=== PATIENT | female | born 1980 | race Caucasian/White ===

== ENCOUNTER 2017-03-01 11:49 | Emergency (ER) | payer OTHER ==
[2017-03-01 12:10] LABS: Urine Bilirubin Negative (NEGATIVE); Urine Blood 50 /ul (NEGATIVE); Urine Ketone 5 mg/dL (NEGATIVE); Urine Protein 30 mg/dL (NEGATIVE); Urine Specific Gravity >=1.030 SP.GR. (1.005-1.010); Urine Urobilinogen Normal (NORMAL)
[2017-03-01 12:11] LABS: Urine Appearance Slightly Cloudy; Urine Bacteria 3+; Urine Color Yellow; Urine Nitrite Positive (NEGATIVE); Urine RBC 0-5 /hpf (0-5); Urine WBC 25-50 /hpf (0-5)
[2017-03-01] MEDS ORDERED: KETOROLAC TROMETHAMINE 30 MG/ML VIAL IV ONE (12:11)
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
[2017-03-01] MEDS ORDERED: KETOROLAC TROMETHAMINE 30 MG/ML VIAL ONE (12:20)
[2017-03-01 12:26] LABS: Hematocrit 35.4 % (37.0-47.0); Hemoglobin 12.4 gm/dL (12.5-16.0); Mean Cell Volume 85.5 fl (78-100); Mean Platelet Volume 9.6 fl (6.0-9.5); Neutrophil # 12.5 K/mm3 (1.3-6.0); Platelet Count 155 K/mm3 (150-450); Red Blood Count 4.14 M/mm3 (4.2-5.4); Red Cell Distribution Width 11.6 % (11.5-14.0); White Blood Count 14.2 K/mm3 (4.0-10.5)
[2017-03-01 12:44] LABS: Albumin * 3.9 gm/dl (3.4-5.0); Anion Gap 17.3 mmol/L (6.8-13.8); BUN/Creatinine Ratio 9.8 (9.0-21.6); Bilirubin, Total 0.5 mg/dL (0.0-1.1); CRP 17.8 mg/dL (0.0-0.9); Ca. Corrected For Albumin 8.4 mg/dL (8.4-10.2); Calcium * 8.6 mg/dL (7.9-10.9); Carbon Dioxide 23.5 mmol/L (24-32.6); Potassium 2.8 mmol/L (3.4-4.6); Total Protein 7.3 gm/dL (6.2-8.2)
[2017-03-01] MEDS ORDERED: PROMETHAZINE HCL 25 MG in DEXTROSE 5 % IN WATER 50 ML IV ONE ×2 (12:53)
[2017-03-01] MEDS ORDERED: MORPHINE SULFATE 2 MG/ML DISP.SYRIN IV ONE (12:53)
[2017-03-01] MEDS ORDERED: POTASSIUM CHLORIDE 20 MEQ TABLET.SA PO ONE (12:54)
[2017-03-01] MEDS ORDERED: POTASSIUM CHLORIDE 20 MEQ TABLET.SA ONE (12:56)
[2017-03-01] MEDS ORDERED: MORPHINE SULFATE 2 MG/ML DISP.SYRIN ONE (12:56)
[2017-03-01 13:08] VITALS: BP 117/70
== END 2017-03-01 14:10 | disposition home or self-care (01) ==
LOC: ER 11:49
DX: N12 Tubulo-interstitial nephritis, not specified as acute or chronic (principal); E87.6 Hypokalemia; Z87.440 Personal history of urinary (tract) infections

== ENCOUNTER 2017-03-03 16:19 | Inpatient (IN) | payer OTHER ==
[2017-03-03] MEDS ORDERED: diphenhydrAMINE HCL 50 MG/ML VIAL IV ONE (17:13)
[2017-03-03] MEDS ORDERED: METOCLOPRAMIDE HCL 5 MG/ML VIAL IV ONE (17:13)
[2017-03-03] MEDS ORDERED: NORMAL SALINE 1,000 ML IV ONE ×2 (17:13→19:30)
[2017-03-03] MEDS ORDERED: diphenhydrAMINE HCL 50 MG/ML VIAL ONE (17:20)
[2017-03-03] MEDS ORDERED: DIATRIZOATE MEGLUMINE, SODIUM 30 ML BTL ONE (17:20)
[2017-03-03] MEDS ORDERED: METOCLOPRAMIDE HCL 5 MG/ML VIAL ONE (17:20)
[2017-03-03] MEDS ORDERED: DIATRIZOATE MEGLUMINE, SODIUM 30 ML BTL PO ONE (17:21)
[2017-03-03 17:29] LABS: Hematocrit 30.6 % (37.0-47.0); Hemoglobin 10.3 gm/dL (12.5-16.0); Mean Cell Volume 87.2 fl (78-100); Mean Corpuscular Hemoglobin 29.3 pg (27-31); Mean Corpuscular Hgb Conc 33.7 g/dl (32-36); Mean Platelet Volume 9.6 fl (6.0-9.5); Platelet Count 159 K/mm3 (150-450); Red Blood Count 3.51 M/mm3 (4.2-5.4); Red Cell Distribution Width 12.1 % (11.5-14.0); White Blood Count 11.3 K/mm3 (4.0-10.5)
[2017-03-03 17:31] LABS: Total Cells Counted 100
[2017-03-03 17:36] LABS: BUN/Creatinine Ratio 14.1 (9.0-21.6); Calcium * 8.8 mg/dL (7.9-10.9); Carbon Dioxide 25.4 mmol/L (24-32.6); Estimated Creat Clear 45.3; Potassium 3.4 mmol/L (3.4-4.6)
[2017-03-03] MEDS ORDERED: HYDROmorphone HCL 1 MG/ML DISP.SYRIN IV ONE (18:11)
[2017-03-03] MEDS ORDERED: HYDROmorphone HCL 1 MG/ML DISP.SYRIN ONE (18:11)
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
[2017-03-03 18:58] LABS: Urine Bilirubin Negative (NEGATIVE); Urine Blood Negative /ul (NEGATIVE); Urine Ketone Negative (NEGATIVE); Urine Nitrite Negative (NEGATIVE); Urine Protein 30 mg/dL (NEGATIVE); Urine Urobilinogen Normal (NORMAL); Urine pH 5.5 pH (5.0-7.0)
[2017-03-03 19:01] LABS: Atypical (Reactive) Lymph 6 % (0-2); Band 3 % (0-2.0); Eosinophil 1 % (0-3); Lymphocyte 6 % (20-51); Monocyte 2 % (0-9); Neutrophil 82 % (42-75); Neutrophil # 9.3 K/mm3 (1.3-6.0); Platelet Estimate Normal (NORMAL)
[2017-03-03 19:02] LABS: RBC Morphology Normal (NORMAL)
[2017-03-03 19:05] LABS: Urine Appearance Slightly Cloudy; Urine Bacteria 1+; Urine Color Yellow; Urine RBC None Seen /hpf (0-5); Urine WBC 0-5 /hpf (0-5)
[2017-03-03] MEDS ORDERED: MORPHINE SULFATE 2 MG/ML DISP.SYRIN IV ONE ×2 (20:30→21:39)
[2017-03-03] MEDS ORDERED: MORPHINE SULFATE 2 MG/ML DISP.SYRIN ONE ×2 (20:30→21:33)
[2017-03-03 20:51] LABS: Albumin * 2.4 gm/dl (3.4-5.0); BUN/Creatinine Ratio 11.6 (9.0-21.6); Bilirubin Direct 0.1 mg/dL (0.0-0.3); Bilirubin, Total 0.2 mg/dL (0.0-1.1); Bilirubin,Indirect 0.1 mg/dL (0.1-0.7); Total Protein 5.9 gm/dL (6.2-8.2)
[2017-03-03] MEDS ORDERED: KETOROLAC TROMETHAMINE 30 MG/ML VIAL ONE (21:37)
[2017-03-03] MEDS ORDERED: KETOROLAC TROMETHAMINE 30 MG/ML VIAL IV ONE (21:39)
[2017-03-03] MEDS ORDERED: SENNOSIDES 8.6 MG TABLET PO SCH (23:45)
[2017-03-03] MEDS ORDERED: BISACODYL 5 MG TABLET.DR PO SCH (23:45)
[2017-03-03] MEDS ORDERED: ONDANSETRON HCL/PF 2 MG/ML VIAL IV PRN (23:46)
[2017-03-04] MEDS ORDERED: MAGNESIUM CITRATE 300 ML BTL ONE (00:12)
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
[2017-03-04] MEDS: HYDROmorphone HCL 1 MG/ML DISP.SYRIN IV PRN ×10 (00:25→21:40)
[2017-03-04] MEDS: MAGNESIUM CITRATE 300 ML BTL PO ONE ×2 (00:26→23:35)
[2017-03-04] MEDS: NORMAL SALINE 1,000 ML IV PRN ×3 (00:26→21:40)
[2017-03-04] MEDS ORDERED: metroNIDAZOLE/SODIUM CHLORIDE 500 MG/100 ML BAG IV SCH (01:30)
[2017-03-04] MEDS: METOCLOPRAMIDE HCL 5 MG/ML VIAL IV PRN ×2 (01:57→18:49)
[2017-03-04] MEDS ORDERED: IBUPROFEN 200 MG TABLET PO PRN (02:02)
[2017-03-04] MEDS ORDERED: oxyCODONE HCL/ACETAMINOPHEN 1 TAB TABLET PO PRN (02:02)
[2017-03-04] MEDS: PIPERACILLIN SODIUM/TAZOBACTAM 3.375 GM in DEXTROSE 5 % IN WATER 100 ML IV SCH ×4 (03:03→09:46)
[2017-03-04 06:14] LABS: Hematocrit 28.8 % (37.0-47.0); Hemoglobin 9.4 gm/dL (12.5-16.0); Mean Cell Volume 88.6 fl (78-100); Mean Corpuscular Hemoglobin 28.9 pg (27-31); Mean Corpuscular Hgb Conc 32.6 g/dl (32-36); Mean Platelet Volume 9.6 fl (6.0-9.5); Neutrophil # 5.4 K/mm3 (1.3-6.0); Neutrophil % 77.3 % (42-75.0); Platelet Count 157 K/mm3 (150-450); Red Blood Count 3.25 M/mm3 (4.2-5.4); Red Cell Distribution Width 12.2 % (11.5-14.0)
[2017-03-04 06:25] LABS: Anion Gap 13.7 mmol/L (6.8-13.8); Calcium * 8.6 mg/dL (7.9-10.9); Carbon Dioxide 23.7 mmol/L (24-32.6); Estimated Creat Clear 62.7; Potassium 3.4 mmol/L (3.4-4.6)
[2017-03-04] MEDS ORDERED: IBUPROFEN 400 MG TABLET PO PRN (07:00)
[2017-03-04] MEDS ORDERED: FERROUS SULFATE 325 MG TABLET PO SCH (09:00)
[2017-03-04] MEDS ORDERED: MAGNESIUM OXIDE 400 MG TABLET PO SCH (09:00)
[2017-03-04] MEDS ORDERED: ACETAMINOPHEN 500 MG TABLET ONE (13:00)
[2017-03-04] MEDS: ACETAMINOPHEN 325 MG TABLET PO PRN (13:02)
[2017-03-04] MEDS ORDERED: DIATRIZOATE MEGLUMINE, SODIUM 30 ML BTL PO ONE (13:44)
[2017-03-04] MEDS: ENOXAPARIN SODIUM 40 MG/0.4 ML SYRG SC SCH (14:12)
[2017-03-04] MEDS: LORazepam 1 MG TABLET PO PRN ×2 (14:13→21:40)
[2017-03-04] MEDS: LACTOBACILLUS ACIDOPHILUS 100 CAP BTL PO SCH ×2 (17:09→21:40)
[2017-03-04] MEDS: LEVOFLOXACIN/D5W 750 MG/150 ML BAG IV SCH (17:09)
[2017-03-05] MEDS ORDERED: ACETAMINOPHEN 500 MG TABLET ONE (02:12)
[2017-03-05] MEDS: HYDROmorphone HCL 1 MG/ML DISP.SYRIN IV PRN ×4 (02:14→07:01)
[2017-03-05] MEDS: ACETAMINOPHEN 325 MG TABLET PO PRN (02:14)
[2017-03-05] MEDS: NORMAL SALINE 1,000 ML IV PRN (05:09)
[2017-03-05 06:08] LABS: Hematocrit 25.2 % (37.0-47.0); Hemoglobin 8.4 gm/dL (12.5-16.0); Mean Cell Volume 88.7 fl (78-100); Mean Corpuscular Hemoglobin 29.6 pg (27-31); Mean Corpuscular Hgb Conc 33.3 g/dl (32-36); Mean Platelet Volume 9.4 fl (6.0-9.5); Neutrophil # 2.6 K/mm3 (1.3-6.0); Neutrophil % 57.2 % (42-75.0); Platelet Count 172 K/mm3 (150-450); Red Blood Count 2.84 M/mm3 (4.2-5.4); Red Cell Distribution Width 12.3 % (11.5-14.0); White Blood Count 4.5 K/mm3 (4.0-10.5)
[2017-03-05 06:29] LABS: ALT 32 U/L (19-67); AST 20 U/L (0-48); Albumin * 2.2 gm/dl (3.4-5.0); Alkaline Phosphatase * 171 U/L (50-170); Anion Gap 13.2 mmol/L (6.8-13.8); Bilirubin, Total 0.2 mg/dL (0.0-1.1); Bilirubin,Indirect 0.1 mg/dL (0.1-0.7); Blood Urea Nitrogen 9 mg/dL (3-23); Carbon Dioxide 24.1 mmol/L (24-32.6); Chloride 107 mmol/L (97-106); Estimated Creat Clear 77.1; Glucose * 104 mg/dL (70-110); Potassium 3.3 mmol/L (3.4-4.6); Sodium 141 mmol/L (132-142); Total Protein 5.6 gm/dL (6.2-8.2)
[2017-03-05] MEDS: LACTOBACILLUS ACIDOPHILUS 100 CAP BTL PO SCH ×2 (08:09→21:03)
[2017-03-05] MEDS ORDERED: POTASSIUM CHLORIDE 20 MEQ TABLET.SA PO ONE (10:45)
[2017-03-05] MEDS ORDERED: HYDROmorphone HCL 1 MG/ML DISP.SYRIN IV PRN (10:46)
[2017-03-05] MEDS: oxyCODONE HCL/ACETAMINOPHEN 1 TAB TABLET PO PRN ×3 (10:58→21:03)
[2017-03-05] MEDS: LORazepam 1 MG TABLET PO PRN ×2 (11:21→21:03)
[2017-03-05] MEDS: ENOXAPARIN SODIUM 40 MG/0.4 ML SYRG SC SCH (14:21)
[2017-03-05] MEDS: LEVOFLOXACIN/D5W 750 MG/150 ML BAG IV SCH (16:35)
[2017-03-05] MEDS: PROMETHAZINE HCL 25 MG TABLET PO PRN (16:58)
--- NOTE | 2017-03-05 19:12 | PN ---
Subjective - Date and Time Seen Date: 03/05/17 Time: 09:00 Subjective Narrative: Patient seen and examined at bedside. No acute issues overnight. Continues to have RUQ and and right flank pain. Continues to have nausea, no vomiting. Objective - Review of Systems Generalized/Overall Review: Reports: Weakness, Chills, Fever, Fatigue EENTM: Reports: No Symptoms Reported Respiratory: Reports: No Symptoms Reported Cardiac: Reports: No Symptoms Reported Abdominal: Reports: Nausea, Abdominal Pain. Denies: Vomiting Genitourinary Symptoms: Reports: Other - right flank pain Musculoskeletal Complaints: Reports: Other - Chronic pain Neurological: Reports: No Symptoms Reported Skin: Reports: No Symptoms Reported Endocrine: Reports: No Symptoms Reported Misc: All systems neg except as marked - Vitals Vitals: Last Vital Signs Temp 37 C 03/05/17 19:03 Pulse 90 03/05/17 19:03 Resp 20 03/05/17 19:03 BP 124/82 03/05/17 19:03 Pulse Ox 98 03/05/17 19:03 - Abnormal Lab Findings Abnormal Lab Findings: Abnormal Lab Results 03/05/17 03/05/17 Range/Units 06:04 06:04 RBC 2.84 L (4.2-5.4) M/mm3 Hgb 8.4 L (12.5-16.0) gm/dL Hct 25.2 L (37.0-47.0) % Immature Gran % (Auto) 0.70 H (0.001-0.429) % Monocytes % 19.4 H (0.0-9) % Lymphocytes # 1.0 L (1.5-3.5) k/mm3 Potassium 3.3 L (3.4-4.6) mmol/L Chloride 107 H (97-106) mmol/L Alkaline Phosphatase 171 H (50-170) U/L Total Protein 5.6 L (6.2-8.2) gm/dL Albumin 2.2 L (3.4-5.0) gm/dl - Exam Constitutional: Present: Alert, Oriented x3, Cooperative, Well developed, Well nourished, Acute distress - Appears uncomfortable secondary to abdominal and flank pain ENT Exam: Present: hearing grossly normal, moist mucous membranes Respiratory: Present: lungs clear, normal breath sounds, no respiratory distress , no accessory muscle use Cardiovascular/Chest: Present: regular rate, rhythm, no edema Abdomen: Present: soft, tender, guarding - voluntary, CVA tenderness - right. Absent: rigidity Extremity: Present: normal range of motion, normal inspection, no pedal edema Skin Exam: Present: normal color, warm/dry, no cyanosis Neurologic: Present: no motor/sensory deficits, alert, normal mood/affect, oriented x 3 Appearance: Present: appropriate appearance, appropriate insight, neat, no memory impairment Eye contact: Present: cooperative, good eye contact, normal speech Thoughts: Present: normal thought pattern, no apparent hallucination Assessment/Plan Plan Narrative: Given the patient's imaging studies, her diagnosis is consistent with pyelonephritis, not acute cholecystitis. Continue IV antibiotics today with plans to switch to oral antibiotics in AM. Continue pain medication as needed, using oral pain medications as first line. Follow clinical course and hopefully patient can be discharged home tomorrow. - Problems/Diagnosis (1) Pyelonephritis Problem: Acute
[2017-03-06] MEDS: oxyCODONE HCL/ACETAMINOPHEN 1 TAB TABLET PO PRN ×3 (03:03→12:09)
[2017-03-06] MEDS: PROMETHAZINE HCL 25 MG TABLET PO PRN (04:17)
[2017-03-06 06:09] LABS: Mean Cell Volume 88.5 fl (78-100); Mean Corpuscular Hemoglobin 29.5 pg (27-31); Mean Corpuscular Hgb Conc 33.3 g/dl (32-36); Mean Platelet Volume 9.2 fl (6.0-9.5); Neutrophil % 59.8 % (42-75.0); Platelet Count 196 K/mm3 (150-450); Red Blood Count 3.05 M/mm3 (4.2-5.4); Red Cell Distribution Width 12.4 % (11.5-14.0)
[2017-03-06 06:42] LABS: Iron 34 mcg/dL (35-120); Transferrin Sat. (% Sat.) 20 % (15-55)
[2017-03-06 06:49] LABS: Albumin * 2.3 gm/dl (3.4-5.0); Anion Gap 13.4 mmol/L (6.8-13.8); BUN/Creatinine Ratio 8.4 (9.0-21.6); Bilirubin, Total 0.2 mg/dL (0.0-1.1); Ca. Corrected For Albumin 9.1 mg/dL (8.4-10.2); Calcium * 8.1 mg/dL (7.9-10.9); Carbon Dioxide 25.6 mmol/L (24-32.6); Folate 9.5 ng/mL (>5.4); Total Protein 5.8 gm/dL (6.2-8.2)
[2017-03-06] MEDS: LORazepam 1 MG TABLET PO PRN (07:38)
[2017-03-06] MEDS: LACTOBACILLUS ACIDOPHILUS 100 CAP BTL PO SCH (08:29)
[2017-03-06] MEDS ORDERED: POTASSIUM CHLORIDE 20 MEQ TABLET.SA PO SCH (09:00)
[2017-03-06 11:55] VITALS: BP 108/77
[2017-03-06] MEDS ORDERED: POTASSIUM CHLORIDE 20 MEQ TABLET.SA PO ONE (12:27)
[2017-03-06] MEDS ORDERED: SENNOSIDES/DOCUSATE SODIUM 1 TAB TABLET PO SCH (13:00)
[2017-03-06] MEDS ORDERED: FERROUS SULFATE 325 MG TABLET PO SCH (13:00)
--- NOTE | 2017-03-06 13:03 | DS ---
(1) Pyelonephritis Problem: Acute (2) Iron deficiency Problem: Acute (3) Normocytic anemia Problem: Acute Description of Stay: ADMISSION DATE: 03/04/2017 DISCHARGE DATE: 03/06/2017 ADMISSION HPI by SHAVONNE Ramos: Ms. Elizalde is a 36-yr-old WF pt with a PMH of Anemia, Anxiety, Depression, GERD, Fibromyalgia, HTN, Spinal Stenosis & Recurrent UTIs. Pt states that she came to the [facility] ER on Thursday 03/01 due to RT flank pain, fever/chills & n/v which begun at 3-4 am. She was found to have a UTI and was discharged home on Cipro 500 b.i.d x 10 days. She took the medicine as advised but states that the RT flank pain never really went away and by yesterday, the pain was radiating to the RUQ. She describes the pain as sharp in nature. She states that she also had a fever of 38.3 last night.She continued to feel nauseated and did not eat or drink much for fear of vomiting. She finally came back to the ER this evening as the symptoms were not getting any better. At the ED, she was also febrile with a temp of 37.9. Had creatinine of 1.70. CBC showed she had elevated WBC of 11,300 with 3 bands. She had an ESR level of 84 and CRP of 35.7. CT of the Abdomen showed Distended Gallbladder with a mild dilatation of the CBD measuring upto 8 mm. A follow-up with a single organ Ultrasound of the RUQ revealed gallbladder wall thickening at the upper limits of normal measurements and minimal gallbladder sludge.These findings were found to be concerning for Acute Cholecystitis. The ERP contacted the surgeon ( ) about pt's case and according to report, he plans to evaluate her in am. HOSPITAL COURSE: The patient was admitted to the hospital after presenting to the emergency department with complaints of right upper quadrant pain, right-sided flank pain , fever and nausea vomiting. At first, there is concern for possible acute cholecystitis. After further imaging and discussion with the radiologist, the patients presentation was felt to be most consistent with right-sided pyelonephritis. She was treated with aggressive IV fluid hydration and IV antibiotics which were transitioned to oral antibiotics prior to discharge. On admission the patient was also found to have acute kidney injury and following aggressive IV fluid hydration her creatinine improved and was not to normal prior to discharge. The patient has normocytic anemia and further workup during her admission revealed iron deficiency. The patient was started on daily iron supplementation and I would recommend rechecking iron studies in approximately 3 months. Overall, the patients admission was uneventful and she was discharged home in stable condition. FOLLOW-UP APPOINTMENTS: -Hospital follow-up with Dr. White on 03/24/2017 @ 9:30AM NEW OR CHANGED MEDICATIONS: -Ferrous sulfate 325mg PO TID with meals -Probiotic BID and continue for 2 weeks after completion of antibiotic -Levofloxacin 750mg PO daily -Phenergan 25mg PO Q8H PRN N/V #20 -Senna-S 1 tab PO TID with meals (hopefully to avoid constipation from iron tablets) DISCONTINUED MEDICATIONS: None RADIOLOGY REPORTS: She like CT of the abdomen and pelvis with oral contrast but without IV contrast on 03/03/2017: Distended gallbladder with mild dilation of the common bile duct measuring up to 8 mm. Trace, nonspecific free fluid in the right paracolic gutter. Large amount of stool within the right and transverse colon. Normal appendix. Right upper quadrant ultrasound on 03/03/2017 showed: The gallbladder wall measures at the upper limits of normal with minimal gallbladder sludge visualized. No cholelithiasis or pericholecystic fluid. Sonographic Bahena sign was elicited. These findings are equivocal for acute cholecystitis. Dilatation of the common bile duct measuring up to 15 mm. MRCP/MRI of the abdomen without contrast on 03/04/2017 showed: 1. Abnormal dilation of the common hepatic and common bile duct, and mildly prominent intrahepatic bile ducts. There is no definite signs of choledocholithiasis. Correlate clinically for biliary obstruction. Other considerations include possible periampullary lesion causing obstruction, versus choledochal cyst. 2. Enlargement of the right kidney, with parenchymal edema, perinephric edema , and mild right-sided pelviectasis. Correlate clinically for obstructive uropathy. Also consider pyelonephritis, renal edema related to renal venous thrombosis, in light of recent noncontrast CT demonstrating no definite signs of ureteral or renal stones. Contrast enhanced CT examination of the abdomen and pelvis could be helpful. 3. Gallbladder distention without evidence for gallstones. CT of the abdomen and pelvis with both IV and oral contrast on 03/04/2017 showed : 1. Enlarged and heterogeneous appearance of the right kidney, with perinephric stranding. This most likely represents right-sided pyelonephritis. Also considered multifocal renal infarcts. There is no evidence for complications such as parenchymal or perinephric fluid collection. 2. Normal opacification of the right renal vein without evidence of venous thrombosis. 3. Right-sided pelviectasis, without definite signs of high-grade obstruction. Partial obstruction would be difficult to exclude. Procedures Performed: none Results and Findings: Laboratory Tests 03/03/17 03/03/17 03/03/17 17:28 17:28 20:35 WBC 11.3 H D Hgb 10.3 L MCV 87.2 Creatinine 1.70 H D 1.55 H Lactic Acid, Venous Iron TIBC Transferrin % Sat Total Bilirubin 0.2 Direct Bilirubin 0.1 Indirect Bilirubin 0.1 AST 63 H ALT 45 Alkaline Phosphatase 207 H C-Reactive Prot, Quant Vitamin B12 Folate Serum HCG, Qual 03/03/17 03/04/17 03/04/17 20:35 01:45 06:05 WBC Hgb MCV 88.6 Creatinine Lactic Acid, Venous 0.6 Iron TIBC Transferrin % Sat Total Bilirubin Direct Bilirubin Indirect Bilirubin AST ALT Alkaline Phosphatase C-Reactive Prot, Quant 35.7 H Vitamin B12 Folate Serum HCG, Qual 03/04/17 03/04/17 03/05/17 06:05 06:05 06:04 WBC Hgb MCV 88.7 Creatinine 1.23 Lactic Acid, Venous Iron TIBC Transferrin % Sat Total Bilirubin Direct Bilirubin Indirect Bilirubin AST ALT Alkaline Phosphatase C-Reactive Prot, Quant Vitamin B12 Folate Serum HCG, Qual Negative 03/05/17 03/06/17 03/06/17 06:04 05:20 05:20 WBC Hgb 9.0 L MCV 88.5 Creatinine 1.00 0.95 Lactic Acid, Venous Iron TIBC Transferrin % Sat Total Bilirubin 0.2 Direct Bilirubin Less than 0.1 Indirect Bilirubin 0.1 AST 20 21 ALT 32 28 Alkaline Phosphatase 171 H 146 C-Reactive Prot, Quant Vitamin B12 839 Folate 9.5 Serum HCG, Qual 03/06/17 05:20 WBC Hgb MCV Creatinine Lactic Acid, Venous Iron 34 L TIBC 171 L Transferrin % Sat 20 Total Bilirubin Direct Bilirubin Indirect Bilirubin AST ALT Alkaline Phosphatase C-Reactive Prot, Quant Vitamin B12 Folate Serum HCG, Qual Discharge Disposition: Home self care Disposition: Home self-care Condition: Stable Discharge Activity: Activity as tolerated Discharge Diet: General/regular food Problem Oriented Discharge Instructions to Patient/Family: Pyelonephritis, Adult, [id number], Flank Pain, [id number] Additional Patient Instructions (free text): HOSPITAL FOLLOW-UP WITH DR. WHITE ON 03/24/2017 @ 9:30AM Prescriptions (Any new or edited meds): RX: Ferrous Sulfate 325 mg PO TIDWM #90 tablet L.acidoph,Paracasei, B.lactis [Probiotic] 1 each PO BID #42 capsule Levofloxacin [Levaquin] 750 mg PO DAILY #7 tablet RX: Promethazine HCl [Phenergan (Promethazine)] 25 mg PO Q8H PRN #20 tablet PRN Reason: Nausea RX: Sennosides/Docusate Sodium [Senokot-S] 1 tab PO TIDWM #90 tablet Complete Home Medications List: Complete Home Medication List: RX: Potassium Chloride [K-Dur] 20 meq PO BID #20 tab 03/01/17 RX: oxyCODONE HCL/ACETAMINOPHEN [Percocet 5 MG/325 MG] 1 tab PO Q4H PRN #20 tab 03/01/17 L.acidoph,Paracasei, B.lactis [Probiotic] 1 each PO BID #42 capsule 03/06/17 Levofloxacin [Levaquin] 750 mg PO DAILY #7 tablet 03/06/17 RX: Ferrous Sulfate 325 mg PO TIDWM #90 tablet 03/06/17 RX: Promethazine HCl [Phenergan (Promethazine)] 25 mg PO Q8H PRN #20 tablet RX: Sennosides/Docusate Sodium [Senokot-S] 1 tab PO TIDWM #90 tablet 03/06/17
== END 2017-03-06 14:23 | disposition home or self-care (01) | DRG 690 ==
LOC: ER 16:19 → MS 22:44 → OBSVTOIN 03-04 13:39
PROVIDERS: ADMIT Nurse Practitioner; ATTEND Internal Medicine
DX: N10 Acute pyelonephritis (principal); E61.1 Iron deficiency; D64.9 Anemia, unspecified; K59.09 Other constipation; I10 Essential (primary) hypertension; M79.7 Fibromyalgia; Z87.440 Personal history of urinary (tract) infections
CPT/HCPCS: 36415; 74176; 74177; 74181; 76705; 80048; 80053; 80076; 81001; 82565; 82607; 82746; 83540; 83550; 83605; 84520; 84703; 85007; 85025; 85045; 85652; 86140; 87040; 87086; 96365; 96375; 99285; G0378